=== PATIENT | female | born 1995 | race Caucasian/White ===

== ENCOUNTER 2019-02-07 19:27 | Emergency (ER) | payer BC ==
[~2019-02-07] VITALS: Ht 160 cm; Wt 57.7 kg
[2019-02-07 19:34] VITALS: Ht 160 cm; Wt 57.7 kg
[2019-02-07] MEDS ORDERED: ORAL CONTRACEPTIVE (19:36)
[2019-02-07] MEDS ORDERED: HYDROCODON-ACE1 EAC7 PO (19:36)
[2019-02-07] MEDS ORDERED: CYCLOBENZAPRINE5 MG PO (19:36)
[2019-02-07 20:27] LABS: HCG URINE NEGATIVE (NEGATIVE)
[2019-02-07 21:03] VITALS: BP 120/84
== END 2019-02-07 21:03 | disposition home or self-care (01) ==
LOC: D.ER 19:27
PROVIDERS: Family Medicine
DX: R51 Headache (principal); V89.2XXA Person injured in unspecified motor-vehicle accident, traffic, initial encounter